=== PATIENT | male | born 1975 | race Caucasian/White ===

== ENCOUNTER → 2017-06-18 | Day surgery (SDC) | payer OTHER ==
[~2017-06-18] MED LIST: BUPIVACAINE/EPINEPHRINE 0.25% 50 ML VIAL INFIL ONE; KETOROLAC TROMETHAMINE 30 MG/ML (IVP) VIAL IV PUSH ONE; LACTATED RINGER'S 1000 ML INJ 1,000 ML ONE; MEPERIDINE HCL 25 MG/ML VIAL ONE; MIDAZOLAM HCL 2 MG/2 ML VIAL ONE; ONDANSETRON HCL 4 MG/2 ML VIAL IV PUSH ONE; PROPOFOL 200 MG/20 ML AMP IV ONE; ROCURONIUM INJ 50 MG/5 ML SYRINGE IV PUSH ONE; SODIUM CHLOR 0.9% 250 ML BAG IV ONE; VANCOMYCIN HCL 1000 MG VIAL ONE
--- NOTE | 2017-06-18 16:38 | TN ---
cc: JANELL STEVE M.D. DATE OF SURGERY 06/18/2017 PREOPERATIVE DIAGNOSIS Bilateral inguinal hernia, umbilical hernia. POSTOPERATIVE DIAGNOSIS Bilateral inguinal hernia, umbilical hernia. PROCEDURE Laparoscopic repair of bilateral inguinal hernia with mesh, umbilical hernia repair. SURGEON Dr. Janell Steve HORSE EXERCISER Kasie Alicia, MS-3 ANESTHESIA General INDICATIONS This is a very pleasant 42-year-old gentleman who was a self-referral for bilateral inguinal hernias. The patient has land, grows crops, has animals, is very active. He has noticed bilateral groin bulges in the shower. He has an incidentally discovered umbilical hernia. INTRAOPERATIVE FINDINGS Small bilateral indirect inguinal hernias. Small bilateral spermatic cord lipomas. Small umbilical hernia. ESTIMATED BLOOD LOSS Minimal. DESCRIPTION OF PROCEDURE IN DETAIL The patient is identified as Rudy Peterson, taken to the operating room and placed in the supine position. Sequential compression devices were placed on bilateral lower extremities. Following induction of adequate general anesthesia the patient's lower abdomen was prepped and draped in usual sterile fashion with Betadine. A time-out procedure was performed. Following completion of time-out procedure to everyone's satisfaction within the room, a proposed infraumbilical small transverse incision was made with a marking pen. Local anesthetic was placed to infiltrate beneath the incision site around the umbilicus. Incision was carried out with scalpel and dissection continued to the posterior level of the anterior rectus fascia on the left side. The umbilical skin was then dissected free of the underlying herniated preperitoneal fatty tissue. The preperitoneal plane was developed using scalpel and the surgeon's finger to develop a retro rectus position. The patient was placed in slight Trendelenburg position. A preperitoneal dissecting balloon was placed in preperitoneal space under direct laparoscopic view and inflated to a total approximately 30 pumps. This allowed for identification of pubic symphysis, left side Xander's ligament and bilateral inferior epigastric vessels. The balloon was deflated and removed and the structural balloon trocar placed in preperitoneal space and its balloon inflated to insufflation to level 11 mmHg ensued. With the patient in slight Trendelenburg position two infraumbilical midline 5 mm trocars were placed in the preperitoneal space under direct laparoscopic view after incision of the skin with scalpel. Attention was turned first to the left side. Blunt dissection lateral and posterior to the spermatic cord was performed. The anteromedial surface of spermatic cord was examined. There was an obvious indirect inguinal hernia sac which was reduced to the base of spermatic cord. In doing so a small defect in the sac was closed with 0-PDS Endoloop. A small spermatic cord lipoma was identified posterior laterally and withdrawn from the inguinal canal to the preperitoneal space. A 4 x 6 inch piece of [employer] ProLite mesh was cut in the anterolateral slit and placed around the spermatic cord and tacked into position with the tacking device. Tacks were placed to approximate the anterolateral slit and a tack was placed in the inferior lateral Xander's ligament. A 2 x 5 inch piece of mesh was placed across the anterolateral slit and held in position with a tacking device. Tack was placed inferomedial, superior medial and superior lateral. Care was taken to avoid tack placement inferolaterally to avoid cutaneous nerve injury. Attention was then turned to the right side. Similar blunt dissection ensued, almost identical findings were demonstrated. An indirect inguinal hernia sac was reduced to the base of spermatic cord using blunt graspers. No sac defect was created. Posterior laterally a small spermatic cord lipoma was identified and reduced from the inguinal canal into the preperitoneal space. The 4 x 6 inch piece of ProLite mesh was placed surrounding the spermatic cord and anterolateral slit. The anterolateral slit approximated with the tacking device and a single tack was placed in the inferolateral Xander's ligament. A 2 x 5 inch piece of mesh was placed across the anterolateral slit and in held position with the tacking device placing tacks inferomedial, superior medial and superior lateral. Again tack placement was avoided inferolaterally to avoid cutaneous nerve injury. Photographs were taken of the completed repairs. Remaining local anesthetic was placed in preperitoneal space and trocars removed under direct visualization. There was no evidence of bleeding from the trocar sites. The preperitoneal space was actively desufflated through the infraumbilical port and was then removed. The anterior rectus fascial incision was closed with running 2-0 Vicryl suture. The umbilical hernia defect was approximated with three interrupted inverted 0 Prolene sutures. An innie umbilicus was reformed with interrupted 2-0 Vicryl sutures. Port site skin incisions were approximated with 4-0 Monocryl subcuticular sutures. Dressings were applied with Mastisol and half inch brown Steri-Strips. Gauze and Tegaderm were placed within the umbilicus. The patient tolerated the procedure without apparent complication. Sponge, needle and instrument counts were correct at the end of the case. MD JATINDER Guadalupe/PORTER /3:43 PM /4:16 PM [id number]
== END | disposition home or self-care (01) ==
LOC: ESDC 11:33
PROVIDERS: ATTEND Surgery Trauma Surgery
DX: K40.20 Bilateral inguinal hernia, without obstruction or gangrene, not specified as recurrent (principal); K42.9 Umbilical hernia without obstruction or gangrene; D17.6 Benign lipomatous neoplasm of spermatic cord
CPT/HCPCS: 00750; 00840; 49585; 49650; C1727; C1781; J1885; J2175; J2250; J2405; J3010; J3370; J7050; J7120